=== PATIENT | male | born 1995 | race Caucasian/White ===

== ENCOUNTER 2020-07-11 11:22 | Emergency (ER) | payer OTHER ==
[~2020-07-11] VITALS: Ht 177.8 cm; Wt 97.1 kg
[2020-07-11] MEDS ORDERED: MEDROLDOSEPACK PO ×2 (14:06→14:12)
[2020-07-11] MEDS ORDERED: ZANAFLEX4 MG PO ×2 (14:06→14:12)
[2020-07-11] MEDS ORDERED: NORCO5 PO ×2 (14:06→14:12)
[2020-07-11 14:14] VITALS: BP 137/82
== END 2020-07-11 14:14 | disposition home or self-care (01) ==
LOC: ER 11:22
DX: M51.26 Other intervertebral disc displacement, lumbar region (principal); M79.672 Pain in left foot